=== PATIENT | male | born 1995 | race Caucasian/White ===

== ENCOUNTER 2016-10-18 00:21 | Emergency (ER) | payer OTHER, MEDICAID ==
[~2016-10-18] VITALS: Ht 172.7 cm; Wt 70.5 kg
[2016-10-18] MEDS ORDERED: KETOROLAC 60MG/2ML VIAL IM ONE (01:15)
[2016-10-18 01:23] LABS: HEMATOCRIT 44.4 % (42.0-52.0); HEMOGLOBIN 15.3 g/dL (14.0-18.0); MEAN CORPUSCULAR HEMOGLOBIN 30.8 pg (28.0-32.0); MEAN CORPUSCULAR HGB CONC 34.3 g/dL (31.0-37.0); MEAN CORPUSCULAR VOLUME 89.8 fL (80.0-94.0); PLATELET 161 x1000/uL (130-400); RED BLOOD CELL COUNT 4.95 mill/uL (4.7-6.1); RED CELL DISTRIBUTION WIDTH 12.8 % (11.6-14.6)
[2016-10-18 01:30] VITALS: BP 137/87
== END 2016-10-18 02:20 | disposition home or self-care (01) ==
LOC: ER 00:23
DX: S00.81XA Abrasion of other part of head, initial encounter (principal); R42 Dizziness and giddiness; W45.8XXA Other foreign body or object entering through skin, initial encounter; Y93.89 Activity, other specified; Y99.8 Other external cause status; Y92.59 Other trade areas as the place of occurrence of the external cause
CPT/HCPCS: 36415; 85027; 99283; J1885